=== PATIENT | male | born 1950 | race Caucasian/White ===

== ENCOUNTER 2016-12-16 13:31 | Observation (INO) | payer MEDICARE ==
[~2016-12-16] VITALS: Ht 180.3 cm; Wt 83.6 kg
[2016-12-16 13:33] VITALS: BP 190/119; PULSE 54; RESP 20; O2SAT 99
--- NOTE | 2016-12-16 14:31 | ED.REPORT ---
HPI-Stroke / CVA Dec 16, 2016 ED Provider: Martinez Howell MD Pt is an otherwise healthy 66 year old male who presents to the ED complaining of brief blurred vision in his right eye onset 11:45 today. The pt was sitting at his computer when his vision was decreased in what he felt to be the right eye only. He perceived the vision decrease as if a shade were being drawn over his eye. He reports that he has had similar symptoms previously some months ago , but he did not present to the doctor. Pt states " I looked up and I thought I was having a mini stroke." He denies any other symptoms at this time. Nursing Notes Stated Complaint: POSS MINI STROKE Chief Complaint: Neuro Symptoms/ Deficits Nursing Notes Reviewed: Yes Allergies: Coded Allergies: No Known Allergies (Unverified , 12/16/16) Scheduled Fluticasone Propionate (Flonase Allergy Relief) 50 Mcg/Actuation [place].susp 2 SPRAYS NOSTRIL DAILY (Reported) Levothyroxine (Levothyroxine) 50 Mcg Tablet 50 MCG PO HS (Reported) Paroxetine (Paxil) 30 Mg Tablet 30 MG PO QAM (Reported) Tamsulosin (Flomax) 0.4 Mg Capsule 0.4 MG PO HS (Reported) Scheduled PRN Loratadine ODT (Claritin ODT) 5 Mg Tablet 5 MG PO DAILY PRN PRN allergies ( Reported) General Time Seen by Provider: 13:40 Chief Complaint Other (Blurred vision) Hx Obtained From: Patient Arrived By: Walk-in Time last known well 11:45 Sudden in Onset?: Yes Symptom Duration: Since onset Progression Since Onset: Resolved Severity: Current: No pain currently Severity: Maximum: No pain Recent Healthcare: No recent doctor visit, No recent hospitalization Similar Sx Previous: Yes Risk Factors NIH Stroke Scale Level of Consciousness: Alert and responsive (0) Ask Month & Age: Both questions right (0) Open/Close Eyes/Hand Director Rehabilitation Program: Performs both tasks (0) Horizontal EO Movements: None (0) Visual [place]: No visual loss (0) Facial Palsy: Normal symmetry (0) Right Arm Motor Drift (10s): No drift 10 sec (0) Left Arm Motor Drift (10s): No drift 10 sec (0) Right Leg Motor Drift (5s): No drift 5 sec (0) Left Leg Motor Drift (5s): No drift 5 sec (0) Limb Ataxia FNF/Heel-Bermudez: No ataxia (0) Sensation (Arms/Legs/Face): No sensory loss (0) Language Aphasia: No aphasia, normal (0) Dysarthria: No dysarthria, normal (0) Extinction/Inattention: No exctinct/inattent (0) NIHSS Score: 0 Time NIHSS Performed: 13:40 Date NIHSS Performed: Dec 16, 2016 Past Medical History Past Medical History Denies: Diabetes mellitus, Hypertension Past Surgical History Denies Smoking History Unknown if Ever Smoker Ambulatory Status Independent Review of Systems Eyes: Reports: Blurred right, Denies: Blurred left, Eye pain left, Eye pain right Complete sys rev & neg: except as marked. Physical Exam Initial Vital Signs Vital Signs (First) Date Time Temp Pulse Resp B/P Pulse Ox O2 Delivery O2 Flow Rate FiO2 12/16/16 13:33 36.8 54 20 190/119 99 Room Air Initial VS: Reviewed Abdomen / GI: Soft, Non-tender Extremities: Vascular intact, Neuro intact Skin: Warm, Dry, No cyanosis Psychiatric: Mood/affect normal, Behavior normal General/Constitutional: Awake, Alert, Cooperative Head / Eyes: Atraumatic, Normocephalic Neck: Atraumatic, Full range of motion Respiratory / Chest: Atraumatic, Breath sounds NL, Breath sounds = bilat Cardiovascular: Heart rate NL, Regular rhythm, Heart sounds NL Neurologic: Oriented X3, Speech NL Interpretation & Diagnostics Lab Results Interpretation Result Diagram: 12/16/16 1401 12/16/16 1401 Test 12/16/16 14:01 White Blood Count 6.1th/mm3 (3.8-10.1) Red Blood Count 4.41mil/mm3 (4.40-5.80) Hemoglobin 13.5g/dL (13.8-17.2) Hematocrit 40.4% (41.0-50.0) Mean Corpuscular Volume 91.6fL (81-100) Mean Corpuscular Hemoglobin 30.6pg (27.0-35.0) Mean Corpuscular Hemoglobin Concent 33.4% (32.0-37.0) Red Cell Distribution Width 13.1% (12.3-15.4) Platelet Count 199bil/L (150-400) Neutrophils (%) (Auto) 60.4% (40-74) Lymphocytes (%) (Auto) 28.2% (14-46) Monocytes (%) (Auto) 8.9% (4-12) Eosinophils (%) (Auto) 2.0% (0-5) Basophils (%) (Auto) 0.5% (0-3) Sodium Level 140mEq/L (134-144) Potassium Level 4.2mEq/L (3.5-5.2) Chloride Level 102mEq/L (97-108) Carbon Dioxide Level 24mmol/L (18-29) Blood Urea Nitrogen 15mg/dL (8-27) Creatinine 0.92mg/dL (0.76-1.27) Estimat Glomerular Filtration Rate 87mL/min (>59) Glucose Level 107mg/dL (60-99) Calcium Level 9.2mg/dL (8.5-10.1) Total Bilirubin 0.3mg/dL (0.0-1.2) Aspartate Amino Transf (AST/SGOT) 20U/L (0-50) Alanine Aminotransferase (ALT/SGPT) 13U/L (0-44) Alkaline Phosphatase 73U/L (25-160) Troponin T < 0.010ug/L (0.0-0.011) Total Protein 6.4g/dL (6.4-8.4) Albumin 4.0g/dL (3.4-5.0) ECG Interpretation ECG Interpretation: Sinus bradycardia rate [address] elevation anteriorly, non-specific Time: 16:16 Interpreted by: ED physician Normal ECG Interpretation: No acute ischemic changes CT Head Interpretation IMPRESSION: Unremarkable head CT. No acute intracranial hemorrhage. Dictated by: Wilfredo Bran M.D. on 12/16/2016 at 13:59 Approved by: Wilfredo Bran M.D. on 12/16/2016 at 14:01 Study: Head CT no contrast Interpretation / Wet Read by: Interpret - Radiologist Re-Eval/Medical Decision Source of Hx: Old records Re-Evaluation/Progress : Time of Eval: 13:54 Re-Evaluation/Progress Note: Informed pt of plan for admission. Pt understands and agrees with plan for admission. All questions addressed. Consultation : Referral / Consult Name: Flaquito Golden MD Consulted With: Hospitalist Call Returned at: 15:52 [employer] Specialist: Will see patient, Agrees with eval, Agrees with plan, Accepts admit Counseled Regarding: Diagnosis, Lab results, Need for admission Patient Discharge & Departure Impression: Primary Impression: Amaurosis fugax of right eye Disposition: ADMITTED TO HOSPITAL Discharge Condition All VS Reviewed: Yes Condition: Stable Referrals: Edmundo Carmen MD (PCP) Scribe Attestation Portions of this note were transcribed by Almaz Larry and Bruce Meier. I, Dr. Howell personally performed the history, physical exam and medical decision-making; I reviewed and confirmed the accuracy of the information in the transcribed note. Signed by: Almaz Meier, Rony, and 14:50 copies to: Edmundo Carmen MD, Kirk H MD Dec 16, 2016 14:31 Almaz Gaitan Dec 16, 2016 14:40 BRUCE MEIER Dec 16, 2016 15:13
[2016-12-16] MEDS ORDERED: Labetalol 5 mg/mL 4 mL Inj IV PRN (14:35)
[2016-12-16 14:42] LABS: BASOPHILS % (AUTO) 0.5 % (0-3); MONOCYTES % (AUTO) 8.9 % (4-12); Mean Corpuscular Hemoglobin 30.6 pg (27.0-35.0); Mean Corpuscular Volume 91.6 fL (81-100); NEUTROPHILS % (AUTO) 60.4 % (40-74); Platelet Count 199 bil/L (150-400)
--- NOTE | 2016-12-16 15:03 | DRSVH ---
PROCEDURE: CT BRAIN WITHOUT CONTRAST ([id number]) INDICATIONS: htn, transient blurriness in rt eye TECHNIQUE: Noncontrast 4.5 mm thick angled axial sections acquired from the foramen magnum to the vertex, with c oronal reformats. COMPARISON: None. FINDINGS: Image quality: Diagnostic. CSF spaces: Basal cisterns are patent. No extra-axial fluid collections. Ventricles are normal in size and shape. Brain: No midline shift. No intracranial masses or hemorrhage. Hayes-white matter interface is norm al. Skull and face: Calvarium and visualized facial bones are intact, without suspicious lesions. Sinuses: Visualized sinuses and mastoids are clear. IMPRESSION: Unremarkable head CT. No acute intracranial hemorrhage. Dictated by: Wilfredo Bran M.D. on 12/16/2016 at 13:59 Approved by: Wilfredo Bran M.D. on 12/16/2016 at 14:01
[2016-12-16 15:05] VITALS: BP 158/71; PULSE 51; RESP 18; O2SAT 97
[2016-12-16 15:14] LABS: TROPONIN T < 0.010 ug/L (0.0-0.011)
--- NOTE | 2016-12-16 15:34 | NUR ---
Evaluation completed. Please go to "Notes" then click on "Assessments and Notes" (bottom left corner of screen). Then select appropriate discipline tab on top of screen.
[2016-12-16] MEDS ORDERED: LORA5TAB8 PO (15:35)
[2016-12-16] MEDS ORDERED: FLUT9.9S NOSTRIL (15:52)
[2016-12-16] MEDS ORDERED: LEVO50TA6 PO (15:52)
[2016-12-16] MEDS ORDERED: TAMS0.4C98 PO (15:52)
[2016-12-16] MEDS ORDERED: PARO30TA75 PO (15:52)
[2016-12-16] MEDS ORDERED: Labetalol 5 mg/mL 20 mL Inj IVPUSH PRN (16:15)
--- NOTE | 2016-12-16 16:32 | PCM.HPMED ---
Subjective Date of Service Dec 16, 2016 Primary Provider: Admitting Physician: Flaquito Golden MD Primary Care Physician: Edmundo Carmen MD Attending Physician: Flaquito Golden MD Chief Complaint: Transient monocular vision loss History of Present Illness: 66-year-old male with scant medical history who presented to the emergency department today complaining of blurred vision of the right eye that lasted for approximately 30 seconds, with onset around noon today. Patient states that his computer when his right eye became blurry and he is unable to see. Patient has had a previous episode, although he does not relate a timetable. At that time he did not seek medical assessment. He denies headache, fever, nausea, vomiting, dizziness, lightheadedness, chest pain, shortness of breath, nuchal rigidity, or hearing loss. In the ED the patient had negative CT of the brain. Review of Systems: Complete review of systems performed; pertinent positives and negatives per history of present illness, all other systems reviewed and are negative Allergies Coded Allergies: No Known Allergies (Unverified , 12/16/16) Home Medications Loratadine ODT 5 mg by mouth daily PMH Seasonal allergies History of transient monocular vision loss Surgical History None reported Family History None reported Social History Hx Alcohol Use: No Hx Substance Use: No Hx Tobacco Use: No Smoking Status: Unknown if Ever Smoker Exam Vital Signs Vital Sign - Last Date Time Temp Pulse Resp B/P Pulse Ox O2 Delivery O2 Flow Rate FiO2 12/16/16 15:05 51 18 158/71 97 12/16/16 13:33 36.8 Room Air Exam General: Pleasant appearing male, no acute distress HEENT: PERRLA, EOMI, nonicteric, membranes moist Lymph: No lymphadenopathy Cardio: Regular rate and rhythm no murmurs rubs or gallops Respiratory: CTA bilaterally, no wheezes, no crackles Abdomen: Soft, positive bowel sounds, nontender, nondistended Extremities: No edema, 4 x 4 strength, sensation intact Psych: Appropriate mood and affect Neuro: CN II through XII grossly intact, sensation intact throughout Skin: No rash NIH score of 0 Lab and Diagnostics Result Diagram: 12/16/16 1401 12/16/16 1401 X-Rays, CTs and MRIs Brain CT IMPRESSION: Unremarkable head CT. No acute intracranial hemorrhage. Dictated by: Wilfredo Bran M.D. on 12/16/2016 at 13:59 12-lead ECG Sinus bradycardia with rate at 49. No concerning ST waves Assessment & Plan 66-year-old male with no past medical history who presents emergency department after 30 seconds of blurry vision while sitting as computer. This is the second episode for this gentleman Amaurosis fugax; present admission; ongoing -No immediately identifiable risk factors; resolved after 30 seconds -Second episode for this patient -MRI without contrast, MRA of the head and neck -Atorvastatin 10 mg now, aspirin now -We will await MRI results, if negative we will discuss further options the patient -We will send home with atorvastatin 40 mg and 81 mg aspirin Disposition: Patient has been admitted to the general medical floor under observation Full code Pain Evaluation: Adequate Pain Control VTE Mechanical Devices: Intermittant Pneumatic CD Resuscitation Status: CPR: Attempt Resuscitation Time spent 40 minutes Attending Statement The patient was seen and examined together with Dr. Tran on 12/15/2016 and I agree with the history, exam findings, and plan as outlined in the note above. I did participate in all aspects of the services provided today, including documentation and the plan of care. The patient is admitted observation status for evaluation of possible TIA with [facility]. Evaluation will include MRI of the brain with MR angiogram of the brain and neck. The patient will be started on aspirin as well as atorvastatin with close follow-up. Brad Browne M.D., DO Dec 16, 2016 16:32 Flaquito Golden MD Dec 17, 2016 09:24
[2016-12-16 17:25] VITALS: BP 138/88; PULSE 57; RESP 20; O2SAT 97
--- NOTE | 2016-12-16 17:30 | DRSVH ---
PROCEDURE: MRI STROKE PROTOCOL ([id number]) Pre- and post-contrast brain MRI, non-contrast brain MR angiogram, pre- and postcontrast neck MR heidi ogram INDICATIONS: 66 year-old male with right amaurosis fugax. TECHNIQUE: Brain: Noncontrast axial T1 spin echo, axial T2 fast spin echo, sagittal and axial FLAIR, coronal T2 fast spin echo, axial gradient echo, axial diffusion and ADC through the brain. After the administr ation of contrast, axial 3D VIBE of the cranial vasculature and brain. Brain MRA: Non-contrast 3-D time of flight MR angiogram, with multiple zzwudmu-hixvxmakp-inwwkekxst (MIP) reformats performed. Neck MRA: Axial and sagittal TruFISP through the neck. Coronal dynamic MR angiogram during administ ration of contrast in the arterial and venous phases, with 3-dimenstional totpvru-fquqazabo-hpdfqbbus n (MIP) reformats constructed from subtraction images. COMPARISON: [facility], CT, CT BRAIN WO CON, 12/16/2016, 14:32. FINDINGS: Image quality: Excellent. BRAIN: CSF spaces: Ventricles are normal in size and shape. Basal cisterns are patent. No extra-axial flu id collections. Brain: No intracranial bleeds or mass effects. There is minimal periventricular and deep white matte r chronic small vessel ischemic change. Diffusion weighted images show no acute ischemic insults. B rainstem appears normal. Normal intravascular flow voids are present. No abnormal intracranial enha ncement. Skull and face: Calvarial marrow signal is normal. Orbits appear normal. Sinuses: There is mild bilateral ethmoid air cell mucosal thickening. Other sinuses and mastoids appe ar clear. BRAIN MR ANGIOGRAM: Anterior circulation: Intracranial internal carotid arteries are normal in size and enhancement. 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 The flow within the middle cerebral arteries is normal and symmetric. The a nterior communicating artery is seen. No stenoses, occlusions, or aneurysms. Posterior circulation: The visualized portions of the vertebral arteries demonstrate normal caliber, and join to form a normal appearing basilar artery. The flow within the posterior cerebral arteries is normal and symmetric. No stenoses, occlusions, or aneurysms. NECK MR ANGIOGRAM: Carotids: Great vessels demonstrate a conventional anatomy as they arise from the aortic arch. The origins of the common carotid arteries appear patent. The calibers and courses of both common caroti d arteries are normal. The bifurcation regions appear normal bilaterally. The internal carotid aarti ye demonstrate normal course and caliber. Posterior circulation: The origins of the codominant vertebral arteries appear patent. More superio r portions of both vertebral arteries demonstrate normal course and caliber, and join to form a sincere l appearing basilar artery. Miscellaneous: Subclavian arteries appear patent. Pre-contrast images through the neck demonstrate a 3.4 x 2.3 x 1.9 cm heterogeneous T2 hyperintense nodular lesion between the right common carotid ar yaneth and the right thyroid lobe. IMPRESSION: BRAIN MRI: 1. No acute intracranial abnormalities. 2. Minimal periventricular and deep white matter chronic small vessel ischemic change. BRAIN MR ANGIOGRAM: No hemodynamically significant lesions of the central intracranial vasculature. 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 NECK MR ANGIOGRAM: 1. No hemodynamically significant lesions of the extracranial neck vasculature. 2. Indeterminate 3.4 x 2.3 x 1.9 cm nodular lesion between the right common carotid artery and the ri ght thyroid lobe. Differential diagnoses would include exophytic thyroid nodule, parathyroid adenoma, or enlarged lymph node. Recommend further initial evaluation with nonemergent thyroid ultrasound, as well as correlation with serum calcium levels. The estimate of stenosis included in the report of the imaging study was calculated using the NASCET method Dictated by: Cj Solitario M.D. on 12/16/2016 at 17:12 Approved by: Cj Solitario M.D. on 12/16/2016 at 17:28
--- NOTE | 2016-12-16 18:52 | PCM.DC.MED ---
Discharge Summary Date of Service Dec 16, 2016 Dates of Hospitalization Date of Hospital Admission Dec 16, 2016 at 15:47 Date of Discharge: Dec 16, 2016 Providers: Admitting Physician: Flaquito Golden MD Primary Care Physician: Edmundo Carmen MD Attending Physician: Flaquito Golden MD Diagnosis at Time of Discharge Diagnosis at Time of Discharge Amaurosis Fugax TIA Procedures XRay, CTs & MRIs Brain CT IMPRESSION: Unremarkable head CT. No acute intracranial hemorrhage. Dictated by: Wilfredo Bran M.D. on 12/16/2016 at 13:59 ECG 12 Lead Sinus bradycardia with rate at 49. No concerning ST waves Brief History 66-year-old male with scant medical history who presented to the emergency department today complaining of blurred vision of the right eye that lasted for approximately 30 seconds, with onset around noon today. Patient states that his computer when his right eye became blurry and he is unable to see. Patient has had a previous episode, although he does not relate a timetable. At that time he did not seek medical assessment. He denies headache, fever, nausea, vomiting, dizziness, lightheadedness, chest pain, shortness of breath, nuchal rigidity, or hearing loss. In the ED the patient had negative CT of the brain. Patient has Amaurosis Fugax with TIA like symptoms. The patient did go for an MRI however the results have not come back. The patient decided that he wanted to leave AGAINST MEDICAL ADVICE. It was explained to the patient that it was very important that we get the results of these tests in order to devise an appropriate treatment plan. 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 The risks of leaving were explained to the patient including potential CVA, risk of brain damage, and potential . The patient stated that he understood and he would go and stay with his son for the evening in order for him to watch him for the next 24 hours. The patient was encouraged to follow-up with his primary care physician however it was highly suggested and recommended that the patient stay until the test results came in. The patient stated that he understood the risks and wanted to leave immediately. Patient stated that he will call to follow-up with the results of his test and left AGAINST MEDICAL ADVICE. Hospital Course 66-year-old male with no past medical history who presents emergency department after 30 seconds of blurry vision while sitting as computer. This is the second episode for this gentleman Amaurosis fugax; present admission; ongoing -No immediately identifiable risk factors; resolved after 30 seconds -Second episode for this patient -MRI without contrast, MRA of the head and neck -Atorvastatin 10 mg now, aspirin now -We will await MRI results, if negative we will discuss further options the patient -We will send home with atorvastatin 40 mg and 81 mg aspirin Disposition: Patient has been admitted to the general medical floor under observation Full code Exam Vital Signs (Last) Date Time Temp Pulse Resp B/P Pulse Ox O2 Delivery O2 Flow Rate FiO2 12/16/16 17:25 36.2 57 20 138/88 97 Room Air Exam Patient seen and examined today Test 12/16/16 14:01 White Blood Count 6.1th/mm3 (3.8-10.1) Red Blood Count 4.41mil/mm3 (4.40-5.80) Hemoglobin 13.5g/dL (13.8-17.2) Hematocrit 40.4% (41.0-50.0) Mean Corpuscular Volume 91.6fL (81-100) Mean Corpuscular Hemoglobin 30.6pg (27.0-35.0) Mean Corpuscular Hemoglobin Concent 33.4% (32.0-37.0) Red Cell Distribution Width 13.1% (12.3-15.4) Platelet Count 199bil/L (150-400) Neutrophils (%) (Auto) 60.4% (40-74) Lymphocytes (%) (Auto) 28.2% (14-46) Monocytes (%) (Auto) 8.9% (4-12) Eosinophils (%) (Auto) 2.0% (0-5) Basophils (%) (Auto) 0.5% (0-3) Sodium Level 140mEq/L (134-144) Potassium Level 4.2mEq/L (3.5-5.2) Chloride Level 102mEq/L (97-108) Carbon Dioxide Level 24mmol/L (18-29) Blood Urea Nitrogen 15mg/dL (8-27) Creatinine 0.92mg/dL (0.76-1.27) Estimat Glomerular Filtration Rate 87mL/min (>59) Glucose Level 107mg/dL (60-99) Calcium Level 9.2mg/dL (8.5-10.1) Total Bilirubin 0.3mg/dL (0.0-1.2) Aspartate Amino Transf (AST/SGOT) 20U/L (0-50) Alanine Aminotransferase (ALT/SGPT) 13U/L (0-44) Alkaline Phosphatase 73U/L (25-160) Troponin T < 0.010ug/L (0.0-0.011) Total Protein 6.4g/dL (6.4-8.4) Albumin 4.0g/dL (3.4-5.0) Triglycerides Level 153mg/dL (0-149) Cholesterol Level 286mg/dL (100-199) LDL Cholesterol, Calculated 177.400mg/dL (0-99) VLDL Cholesterol 30.600mg/dL HDL Cholesterol 78mg/dL (>39) Cholesterol/HDL Ratio 3.67 (0.0-4.4) Discharge Medications Discharge Medications Fluticasone Propionate (Flonase Allergy Relief) 50 Mcg/Actuation [place].susp 2 SPRAYS NOSTRIL DAILY (Reported) Levothyroxine (Levothyroxine) 50 Mcg Tablet 50 MCG PO HS (Reported) Paroxetine (Paxil) 30 Mg Tablet 30 MG PO QAM (Reported) Tamsulosin (Flomax) 0.4 Mg Capsule 0.4 MG PO HS (Reported) As needed Loratadine ODT (Claritin ODT) 5 Mg Tablet 5 MG PO DAILY PRN PRN allergies ( Reported) Followup Plan Follow-up Provider: Edmundo Carmen MD Time spent Greater than 35 minutes copies to: Edmnudo Carmen MD, Precious L DO Dec 16, 2016 18:52
== END 2016-12-16 17:44 | disposition left against medical advice (07) ==
LOC: SED 13:31 → MPC 15:47 → MOC 16:21
PROVIDERS: ADMIT Hospitalist; ATTEND Hospitalist
DX: G45.3 Amaurosis fugax (principal); G45.9 Transient cerebral ischemic attack, unspecified; J30.2 Other seasonal allergic rhinitis; Z79.899 Other long term (current) drug therapy
CPT/HCPCS: 36415; 70450; 70549; 70553; 80053; 80061; 83036; 84484; 85025; 92610; 93005; 99285; A9585; G0378